=== PATIENT | male | born 1955 | race Caucasian/White ===

== ENCOUNTER 2018-05-23 13:23 | Inpatient (IN) | payer MEDICAID ==
[~2018-05-23] VITALS: Ht 180.3 cm; Wt 75.3 kg
[2018-05-23 13:23] VITALS: BP_SYST 168
[2018-05-23] MEDS ORDERED: NACL 0.9% 1,000 ML IV ONE (14:00)
[2018-05-23 14:14] LABS: BASOPHILS % (AUTO) 0.4 % (0.0-2.0); EOSINOPHILS % (AUTO) 0.1 % (0.0-4.0); HEMATOCRIT 43.8 % (36-54); HEMOGLOBIN 14.1 g/dL (14.0-18.0); LYMPHOCYTES # (AUTO) 0.8 K/uL (1.0-5.5); LYMPHOCYTES % (AUTO) 8.5 % (20.5-51.5); MEAN CORPUSCULAR HEMOGLOBIN 30 pg (27-31); MEAN CORPUSCULAR HGB CONC 32 % (32-36); MEAN CORPUSCULAR VOLUME 94 fL (79.0-98.0); MONOCYTES # (AUTO) 0.4 K/uL (0.0-1.0); NEUTROPHILS # (AUTO) 8.1 K/uL (1.8-7.7); PLATELET COUNT (AUTO) 187 K/uL (130-430); RED BLOOD CELL COUNT(AUTO) 4.65 MIL/uL (4.2-6.2); RED CELL DISTRIBUTION WIDTH 14.1 % (9.0-15.0); WHITE BLOOD COUNT (AUTO) 9.3 K/uL (4.8-10.8)
[2018-05-23] MEDS ORDERED: cloNIDine HCL 0.1 MG TABLET PO ONE (14:15)
[2018-05-23 14:27] LABS: CALCIUM 9.5 mg/dL (8.4-11.0); CREATININE 1.55 mg/dL (0.55-1.30); POTASSIUM 3.7 mmol/L (3.5-5.1)
[2018-05-23 14:30] LABS: PROTHROMBIN TIME 10.3 SECS (9.5-12.5)
[2018-05-23 14:32] LABS: TOTAL BILIRUBIN 0.6 mg/dL (0.0-1.0)
[2018-05-23 15:00] LABS: BILIRUBIN,URINE NEGATIVE (NEGATIVE); BLOOD, URINE TRACE (NEGATIVE); CLARITY/URINE CLEAR (CLEAR); COLOR,URINE YELLOW (YELLOW); GLUCOSE,URINE NEGATIVE (NEGATIVE); KETONES,URINE NEGATIVE (NEGATIVE); LEUKOCYTE ESTERASE ,URINE NEGATIVE (NEGATIVE); NITRITE, URINE NEGATIVE (NEGATIVE); PH,URINE 5.5 (5.0-8.0); PROTEIN URINE TRACE (NEGATIVE); UROBILINOGEN,URINE 0.2 (0.2-1.0)
[2018-05-23 15:10] LABS: BACTERIA,URINE RARE /HPF (None Seen); MUCUS,URINE None Seen /LPF (None Seen); RBC,URINE 0-3 /HPF (0-3); WBC,URINE 0-3 /HPF (0-3)
[2018-05-23] MEDS ORDERED: fentaNYL CITRATE/PF 100 MCG/2 ML AMP IVP ONE ×2 (15:30→17:15)
[2018-05-23] MEDS ORDERED: METO25TA3 PO (16:46)
[2018-05-23] MEDS ORDERED: AMLO2.5T2 PO (16:46)
[2018-05-23] MEDS ORDERED: ASPI-859 PO (16:46)
[2018-05-23] MEDS ORDERED: CLOP300T2 PO (16:46)
[2018-05-23] MEDS ORDERED: CHOL100035 PO (16:46)
[2018-05-23] MEDS ORDERED: LIP40 PO (16:46)
[2018-05-23] MEDS ORDERED: LOSA50TA3 PO (16:46)
[2018-05-23 18:22] VITALS: BP_SYST 144
[2018-05-23 19:25] VITALS: BP_SYST 132
[2018-05-23] MEDS ORDERED: CLINDAMYCIN 600 mg/50mL D5W 100 ML IV ONE (20:16)
[2018-05-23] MEDS: KCL 20 mEq in D5NS 1000 mL 1,000 ML IV SCH (20:23)
[2018-05-23] MEDS: CLINDAMYCIN 600 mg/50mL D5W 50 ML IV SCH (20:24)
[2018-05-23] MEDS: METOPROLOL SUCCINATE 25 MG TAB.SR.24H (TOPROL XL) PO SCH (20:25)
[2018-05-23] MEDS: ATORVASTATIN 20 MG TABLET PO SCH (20:26)
[2018-05-23] MEDS: KETOROLAC TROMETHAMINE 15 MG VIAL IVP PRN (20:32)
[2018-05-23 23:50] VITALS: BP_SYST 128
[2018-05-24] MEDS: CLINDAMYCIN 600 mg/50mL D5W 50 ML IV SCH ×4 (02:28→21:05)
[2018-05-24] MEDS: KETOROLAC TROMETHAMINE 15 MG VIAL IVP PRN ×3 (03:29→21:09)
[2018-05-24 06:50] LABS: BASOPHILS % (AUTO) 0.5 % (0.0-2.0); EOSINOPHILS # (AUTO) 0.1 K/uL (0.0-0.4); EOSINOPHILS % (AUTO) 0.9 % (0.0-4.0); HEMATOCRIT 36.9 % (36-54); HEMOGLOBIN 12.4 g/dL (14.0-18.0); LYMPHOCYTES # (AUTO) 1.1 K/uL (1.0-5.5); MEAN CORPUSCULAR HEMOGLOBIN 32 pg (27-31); MEAN CORPUSCULAR HGB CONC 34 % (32-36); MEAN CORPUSCULAR VOLUME 94 fL (79.0-98.0); MONOCYTES # (AUTO) 0.7 K/uL (0.0-1.0); MONOCYTES % (AUTO) 11.3 % (1.7-9.3); NEUTROPHILS # (AUTO) 4.5 K/uL (1.8-7.7); NEUTROPHILS % (AUTO) 70.3 % (40.0-70.0); PLATELET COUNT (AUTO) 151 K/uL (130-430); RED BLOOD CELL COUNT(AUTO) 3.91 MIL/uL (4.2-6.2); WHITE BLOOD COUNT (AUTO) 6.4 K/uL (4.8-10.8)
[2018-05-24 07:09] LABS: CALCIUM 8.4 mg/dL (8.4-11.0); CREATININE 1.53 mg/dL (0.55-1.30); POTASSIUM 4.2 mmol/L (3.5-5.1); URIC ACID 5.2 mg/dL (2.4-7.0)
[2018-05-24 08:00] VITALS: BP_SYST 150
[2018-05-24] MEDS: KCL 20 mEq in D5NS 1000 mL 1,000 ML IV SCH (09:08)
[2018-05-24] MEDS: CLOPIDOGREL BISULFATE 75 MG TABLET PO SCH (09:10)
[2018-05-24] MEDS: amLODIPine BESYLATE 5 MG TABLET PO SCH (09:10)
[2018-05-24] MEDS: ENOXAPARIN SODIUM 30 MG/0.3 ML SYRINGE SUBCUT SCH (09:14)
[2018-05-24 11:08] LABS: ERYTHROCYTE SEDIMENTATION RATE 8 MM/HR (0-15)
[2018-05-24 12:00] VITALS: BP_SYST 118
[2018-05-24 16:02] VITALS: BP_SYST 105
[2018-05-24] MEDS: VANCOMYCIN HCL 750 MG in NS 250 ML IV SCH (17:41)
[2018-05-24 19:15] VITALS: BP_SYST 142
[2018-05-24] MEDS: METOPROLOL SUCCINATE 25 MG TAB.SR.24H (TOPROL XL) PO SCH (21:05)
[2018-05-24] MEDS: ATORVASTATIN 20 MG TABLET PO SCH (21:06)
[2018-05-25 00:54] VITALS: BP_SYST 131
[2018-05-25] MEDS: CLINDAMYCIN 600 mg/50mL D5W 50 ML IV SCH ×4 (01:32→20:50)
[2018-05-25] MEDS: VANCOMYCIN HCL 750 MG in NS 250 ML IV SCH ×2 (05:27→18:04)
[2018-05-25] MEDS: KETOROLAC TROMETHAMINE 15 MG VIAL IVP PRN ×3 (05:28→18:05)
[2018-05-25] MEDS: KCL 20 mEq in D5NS 1000 mL 1,000 ML IV SCH ×2 (05:29→11:30)
[2018-05-25 08:02] VITALS: BP_SYST 148
[2018-05-25] MEDS: CLOPIDOGREL BISULFATE 75 MG TABLET PO SCH (08:26)
[2018-05-25] MEDS: ENOXAPARIN SODIUM 30 MG/0.3 ML SYRINGE SUBCUT SCH (08:27)
[2018-05-25] MEDS: amLODIPine BESYLATE 5 MG TABLET PO SCH (08:27)
[2018-05-25 12:30] VITALS: BP_SYST 128
[2018-05-25 16:29] VITALS: BP_SYST 121
[2018-05-25] MEDS ORDERED: MILK OF MAGNESIA 30 ML UDC PO ONE (18:45)
[2018-05-25] MEDS ORDERED: MILK OF MAGNESIA 30 ML UDC PO PRN (18:45)
[2018-05-25 19:00] VITALS: BP_SYST 128
[2018-05-25 20:00] VITALS: BP_SYST 128
[2018-05-25] MEDS: ATORVASTATIN 20 MG TABLET PO SCH (20:50)
[2018-05-25] MEDS: METOPROLOL SUCCINATE 25 MG TAB.SR.24H (TOPROL XL) PO SCH (20:52)
[2018-05-25] MEDS ORDERED: SENNOSIDES 8.6 MG TABLET PO SCH (21:00)
[2018-05-26 00:01] VITALS: BP_SYST 135
[2018-05-26] MEDS: KCL 20 mEq in D5NS 1000 mL 1,000 ML IV SCH (01:13)
[2018-05-26] MEDS: CLINDAMYCIN 600 mg/50mL D5W 50 ML IV SCH ×3 (01:15→14:14)
[2018-05-26] MEDS: VANCOMYCIN HCL 750 MG in NS 250 ML IV SCH (05:17)
[2018-05-26 07:50] VITALS: BP_SYST 140
[2018-05-26] MEDS: KETOROLAC TROMETHAMINE 15 MG VIAL IVP PRN (08:17)
[2018-05-26] MEDS: CLOPIDOGREL BISULFATE 75 MG TABLET PO SCH (08:18)
[2018-05-26] MEDS: amLODIPine BESYLATE 5 MG TABLET PO SCH (08:18)
[2018-05-26] MEDS: ENOXAPARIN SODIUM 30 MG/0.3 ML SYRINGE SUBCUT SCH (08:21)
[2018-05-26 11:24] VITALS: BP_SYST 133
[2018-05-26 12:51] VITALS: BP_SYST 133
[2018-05-26] MEDS ORDERED: DOXY100C PO (13:05)
== END 2018-05-26 14:30 | disposition home health service (06) | DRG 344 ==
LOC: SED 13:23 → SMU 17:51
PROVIDERS: ADMIT Family Medicine; ATTEND Family Medicine
DX: M86.9 Osteomyelitis, unspecified (principal); N17.9 Acute kidney failure, unspecified; Q61.3 Polycystic kidney, unspecified; L03.115 Cellulitis of right lower limb; I73.9 Peripheral vascular disease, unspecified; E86.0 Dehydration; I25.10 Atherosclerotic heart disease of native coronary artery without angina pectoris; E78.5 Hyperlipidemia, unspecified; I12.9 Hypertensive chronic kidney disease with stage 1 through stage 4 chronic kidney disease, or unspecified chronic kidney disease; N18.2 Chronic kidney disease, stage 2 (mild); M60.9 Myositis, unspecified; M19.90 Unspecified osteoarthritis, unspecified site; M25.471 Effusion, right ankle; M10.9 Gout, unspecified; M11.271 Other chondrocalcinosis, right ankle and foot; K59.00 Constipation, unspecified; Z79.01 Long term (current) use of anticoagulants; Z95.5 Presence of coronary angioplasty implant and graft; I25.2 Old myocardial infarction; Z79.899 Other long term (current) drug therapy; Z91.041 Radiographic dye allergy status
CPT/HCPCS: 36415; 71045; 73721; 80048; 80053; 81000-TC; 83605; 83880; 84484; 84550-TC; 85025; 85610-TC; 85651-TC; 85730-TC; 87040-TC; 87086; 93005; 93922; 93971; 96361; 96374; 96376; 99285; J1650; J1885; J3010; J3370; J3490; J7050

== ENCOUNTER 2018-07-13 19:05 | Emergency (ER) | payer MEDICAID ==
[~2018-07-13] VITALS: Ht 180.3 cm; Wt 74.4 kg
[2018-07-13 19:05] VITALS: BP_SYST 186
[~2018-07-13 19:05] MED LIST: AMLO2.5T2 PO; ASPI-859 PO; CHOL100035 PO; CLOP300T2 PO; DOXY100C PO; LIP40 PO; LOSA50TA3 PO; METO25TA3 PO
[2018-07-13] MEDS ORDERED: METOPROLOL TARTRATE 5 MG/5 ML VIAL IVP ONE (19:30)
[2018-07-13 20:03] LABS: BASOPHILS % (AUTO) 0.7 % (0.0-2.0); EOSINOPHILS # (AUTO) 0.1 K/uL (0.0-0.4); EOSINOPHILS % (AUTO) 2.8 % (0.0-4.0); HEMATOCRIT 41.6 % (36-54); HEMOGLOBIN 13.8 g/dL (14.0-18.0); LYMPHOCYTES # (AUTO) 1.3 K/uL (1.0-5.5); MEAN CORPUSCULAR HEMOGLOBIN 31 pg (27-31); MEAN CORPUSCULAR HGB CONC 33 % (32-36); MEAN CORPUSCULAR VOLUME 93 fL (79.0-98.0); MONOCYTES # (AUTO) 0.3 K/uL (0.0-1.0); MONOCYTES % (AUTO) 7.2 % (1.7-9.3); NEUTROPHILS # (AUTO) 2.8 K/uL (1.8-7.7); NEUTROPHILS % (AUTO) 61.3 % (40.0-70.0); PLATELET COUNT (AUTO) 199 K/uL (130-430); RED BLOOD CELL COUNT(AUTO) 4.49 MIL/uL (4.2-6.2); WHITE BLOOD COUNT (AUTO) 4.5 K/uL (4.8-10.8)
[2018-07-13 20:24] LABS: PROTHROMBIN TIME 10.1 SECS (9.5-12.5)
[2018-07-13 20:35] LABS: CALCIUM 8.9 mg/dL (8.4-11.0); CREATININE 1.33 mg/dL (0.55-1.30); POTASSIUM 4.2 mmol/L (3.5-5.1)
[2018-07-13 20:40] LABS: ALBUMIN 3.6 g/dL (3.4-4.8); TOTAL BILIRUBIN 0.4 mg/dL (0.0-1.0)
[2018-07-13 20:49] LABS: BILIRUBIN,URINE NEGATIVE (NEGATIVE); BLOOD, URINE NEGATIVE (NEGATIVE); CLARITY/URINE CLEAR (CLEAR); COLOR,URINE YELLOW (YELLOW); GLUCOSE,URINE NEGATIVE (NEGATIVE); KETONES,URINE NEGATIVE (NEGATIVE); LEUKOCYTE ESTERASE ,URINE NEGATIVE (NEGATIVE); NITRITE, URINE NEGATIVE (NEGATIVE); PROTEIN URINE NEGATIVE (NEGATIVE); UROBILINOGEN,URINE 0.2 (0.2-1.0)
[2018-07-13] MEDS ORDERED: MORPHINE 2 MG/ML INJ. SYRINGE IVP ONE (23:00)
[2018-07-13] MEDS ORDERED: MORPHINE 4 MG/ML INJ. SYRINGE ONE (23:27)
[2018-07-14 02:47] VITALS: BP_SYST 143
== END 2018-07-13 23:47 | disposition home or self-care (01) ==
LOC: SED 19:05
DX: M25.561 Pain in right knee (principal); I25.2 Old myocardial infarction; I10 Essential (primary) hypertension; E78.5 Hyperlipidemia, unspecified; Z95.1 Presence of aortocoronary bypass graft; Z79.899 Other long term (current) drug therapy; Z91.041 Radiographic dye allergy status
CPT/HCPCS: 36415; 73564; 80053; 81003; 83605; 84484; 85025; 85610; 85730; 86140; 87040; 93005; 96374; 96375; 99284; J2270; J3490

== ENCOUNTER 2018-11-21 15:15 | Inpatient (IN) | payer MEDICAID ==
[~2018-11-21] VITALS: Ht 180.3 cm; Wt 76.7 kg
--- NOTE | 2018-11-21 00:50 | NUR ---
Pain mgmt Pt alert, awake, c/o burning pain 6/10 more on L. foot than right. Medicated with Ultram 50mg PO. Call light/items within reach. To monitor. Addendum: 11/22/18 at 0117 by Ana Baldwin RN Occurred 11/21/18 5476.
[2018-11-21 15:15] VITALS: BP_SYST 147
--- NOTE | 2018-11-21 15:15 | NUR ---
BROUGHT BACK TO BED #5 VIA WHEELCHAIR AND PLACED IN BED, TRIAGED. REPORT GIVEN TO ANA MARÍA
--- NOTE | 2018-11-21 15:50 | NUR ---
ER Dr. Vaughan at bedside examining patient.
--- NOTE | 2018-11-21 15:55 | NUR ---
Patient presented to ER with C/o pain bilat feet. Patient A&Ox4, a febrile, skin pink, respirations equal bilat, pain 9/10, denies N/V/D. patient arrived sitting in walker, states he is unable to walk d/t bilat feet swelling. Patient states he was at follow up appont at Dr. Pinto office, when Dr. Pnito suggested pt come to ER for evaluation. Patient states bilat foot pain, swelling, throbbing x1week. Patient was seen at [facility] ER 11/17/18 for gout. Patient states pain & swelling has not decreased prompting visit to Dr. Pinto.
[2018-11-21] MEDS ORDERED: ACETAMINOPHEN 325 MG TABLET PO ONE (16:00)
--- NOTE | 2018-11-21 16:05 | NUR ---
ASSISTED BELA GOTTI. TYLENOL ADMINISTERED FOR BILATERAL FOOT PAIN = 9/. TOLERATED WELL. PLEASE SEE EMAR FOR DETAILS.
[2018-11-21 16:23] LABS: BASOPHILS % (AUTO) 0.2 % (0.0-2.0); EOSINOPHILS % (AUTO) 0.2 % (0.0-4.0); HEMATOCRIT 44.1 % (36-54); HEMOGLOBIN 14.6 g/dL (14.0-18.0); LYMPHOCYTES # (AUTO) 0.6 K/uL (1.0-5.5); LYMPHOCYTES % (AUTO) 7.6 % (20.5-51.5); MEAN CORPUSCULAR HEMOGLOBIN 31 pg (27-31); MEAN CORPUSCULAR HGB CONC 33 % (32-36); MEAN CORPUSCULAR VOLUME 94 fL (79.0-98.0); MONOCYTES # (AUTO) 0.7 K/uL (0.0-1.0); MONOCYTES % (AUTO) 8.5 % (1.7-9.3); NEUTROPHILS # (AUTO) 6.7 K/uL (1.8-7.7); NEUTROPHILS % (AUTO) 83.5 % (40.0-70.0); PLATELET COUNT (AUTO) 193 K/uL (130-430); RED BLOOD CELL COUNT(AUTO) 4.68 MIL/uL (4.2-6.2); RED CELL DISTRIBUTION WIDTH 14.5 % (9.0-15.0)
[2018-11-21 16:37] LABS: CALCIUM 9.4 mg/dL (8.4-11.0); CREATININE 1.71 mg/dL (0.55-1.30); POTASSIUM 4.4 mmol/L (3.5-5.1)
[2018-11-21 16:42] LABS: ALBUMIN 3.3 g/dL (3.4-4.8); TOTAL BILIRUBIN 0.8 mg/dL (0.0-1.0)
--- NOTE | 2018-11-21 17:00 | NUR ---
avionics technician at bedside
--- NOTE | 2018-11-21 18:33 | NUR ---
Patient states he forgot Medication list, will bring list in.
[2018-11-21] MEDS ORDERED: PIPERACILLIN/TAZO 3.375 GM in NS 50 ML IV ONE (18:45)
[2018-11-21] MEDS ORDERED: VANCOMYCIN HCL 1,000 MG in NS 250 ML IV ONE (18:45)
[2018-11-21] MEDS ORDERED: PIPERACILLIN/TAZOBACTAM 3.375 GM/VIAL (ZOSYN) IV ONE (18:57)
--- NOTE | 2018-11-21 19:10 | NUR ---
Report given to Mandy CRAMER
--- NOTE | 2018-11-21 19:20 | NUR ---
1919 - Report given at bedside to med/surg admit nurse. Pt to be transported to floor by ANDREE Robles w/ pt in [facility]. Stable condition.
[2018-11-21] MEDS ORDERED: VANCOMYCIN HCL 1000 MG/VIAL IV ONE ×2 (19:25→19:40)
--- NOTE | 2018-11-21 19:44 | NUR ---
ADMISSION NOTE Received patient from ER via gurney. Patient admitted with diagnosis of Cellulitis to Bilateral Lower Extremities. Patient is awake, alert, oriented X 4. Patient oriented to hospital room, call light, toileting, pain management and safety-teach back done. Patient informed that BELA Perez will be primary nurse and that their room number is 134B. Personal belongings checked and Belongings List documented. Call light within reach.
[2018-11-21 19:53] VITALS: BP_SYST 144
--- NOTE | 2018-11-21 20:44 | NUR ---
Initial RN notes Received pt AAOx4, no s/s distress noted. IV antibiotic Vanco infusing L. AC 20G good blood return. Santiago lower extremities edematous L foot > than R. foot. Left foot more tender, swollen and red than right. Allergy band on. Instructed pt to call for assistance, pt verbalized understanding. Call light/urinal within reach. Will continue to monitor.
--- NOTE | 2018-11-21 21:30 | NUR ---
Urine sample collected and sent to lab.
[2018-11-21 22:39] LABS: BILIRUBIN,URINE NEGATIVE (NEGATIVE); CLARITY/URINE CLEAR (CLEAR); COLOR,URINE YELLOW (YELLOW); GLUCOSE,URINE NEGATIVE (NEGATIVE); KETONES,URINE NEGATIVE (NEGATIVE); LEUKOCYTE ESTERASE ,URINE NEGATIVE (NEGATIVE); NITRITE, URINE NEGATIVE (NEGATIVE); PH,URINE 5.5 (5.0-8.0); PROTEIN URINE TRACE (NEGATIVE); UROBILINOGEN,URINE 0.2 (0.2-1.0)
[2018-11-21 22:41] LABS: BLOOD, URINE TRACE (NEGATIVE)
[2018-11-21 22:44] LABS: BACTERIA,URINE FEW /HPF (None Seen); WBC,URINE 0-3 /HPF (0-3)
--- NOTE | 2018-11-21 22:56 | NUR ---
Dr. Story here to see pt.
--- NOTE | 2018-11-21 23:15 | NUR ---
CONSULTATION PAGED/CALLED Reason for Consultation: RENAL DISEASE Person Who was Notified: ANA MARÍA Consulting Physician: BRANDON Yardage Control Clerk Specialty: Ordering Physician: CHUNG
--- NOTE | 2018-11-21 23:17 | NUR ---
CONSULTATION PAGED/CALLED Reason for Consultation:CELLULITIS TO LOWER EXTRIMITIES Person Who was Notified: ANA MARÍA Consulting Physician: CORAZON Appraisal Coordinator Specialty: ID Ordering Physician: CHUNG
[2018-11-21] MEDS: CARVEDILOL 12.5 MG TABLET (COREG) PO SCH (23:48)
[2018-11-21] MEDS: traMADol HCL HCL 50 MG TABLET (ULTRAM) PO PRN (23:49)
--- NOTE | 2018-11-21 23:49 | NUR ---
Pain mgmt Pt alert, awake, c/o burning pain 6/10 more on the left foot than the right. Pt medicated with Ultram 50mg PO as needed. Santiago legs maintained elevated on pillow. Call light within reach. To monitor.
[2018-11-22] MEDS ORDERED: PIPERACILLIN/TAZOBACTAM 2.25 GM VIAL IV ONE (00:07)
[2018-11-22] MEDS: PIPERACILLIN/TAZO 2.25G/DEX-IS 50 ML IV SCH ×2 (00:13→06:05)
[2018-11-22 00:31] VITALS: BP_SYST 139
--- NOTE | 2018-11-22 00:43 | NUR ---
Rounds Pt asleep, easily arousable. IV abx finished L. AC 20G clear, patent. Call light within reach. Bed low, locked, alarm on. To monitor.
--- NOTE | 2018-11-22 04:43 | NUR ---
Rounds Pt asleep, no s/s distress or discomfort noted. Call light within easy reach. To monitor.
--- NOTE | 2018-11-22 06:05 | NUR ---
Closing notes Pt alert, awake. No s/s distress or discomfort at this time. IV antibiotic infusing L. AC 20 as ordered, no s/s infiltration noted. Santiago legs maintained floated on pillow. Less swelling/erythema noted on santiago feet. Call light within reach. Safety measure in place. To endorse to AM nurse.
[2018-11-22 06:21] LABS: CALCIUM 8.9 mg/dL (8.4-11.0); CREATININE 1.52 mg/dL (0.55-1.30); POTASSIUM 4.6 mmol/L (3.5-5.1)
[2018-11-22 06:25] LABS: BASOPHILS % (AUTO) 0.7 % (0.0-2.0); EOSINOPHILS # (AUTO) 0.1 K/uL (0.0-0.4); EOSINOPHILS % (AUTO) 0.9 % (0.0-4.0); HEMATOCRIT 38.9 % (36-54); HEMOGLOBIN 12.8 g/dL (14.0-18.0); LYMPHOCYTES # (AUTO) 1.1 K/uL (1.0-5.5); LYMPHOCYTES % (AUTO) 19.3 % (20.5-51.5); MEAN CORPUSCULAR HEMOGLOBIN 31 pg (27-31); MEAN CORPUSCULAR HGB CONC 33 % (32-36); MEAN CORPUSCULAR VOLUME 94 fL (79.0-98.0); MONOCYTES # (AUTO) 0.6 K/uL (0.0-1.0); MONOCYTES % (AUTO) 11.3 % (1.7-9.3); NEUTROPHILS # (AUTO) 3.7 K/uL (1.8-7.7); NEUTROPHILS % (AUTO) 67.8 % (40.0-70.0); PLATELET COUNT (AUTO) 169 K/uL (130-430); RED BLOOD CELL COUNT(AUTO) 4.15 MIL/uL (4.2-6.2); RED CELL DISTRIBUTION WIDTH 14.6 % (9.0-15.0); WHITE BLOOD COUNT (AUTO) 5.5 K/uL (4.8-10.8)
[2018-11-22 06:38] LABS: C-REACTIVE PROTEIN QUANT 19.5 mg/dL (0-0.5)
[2018-11-22 08:00] VITALS: BP_SYST 138
--- NOTE | 2018-11-22 08:00 | NUR ---
initial notes rec patient awake alert with hob elevated. ivl intact. no infiltration noted. resp easy and unlabored. no sob noted. bed to the lowest position and side rails up and locked. call light within reached and k knows when to call for assistance.
[2018-11-22] MEDS: CARVEDILOL 12.5 MG TABLET (COREG) PO SCH ×2 (09:07→21:00)
[2018-11-22] MEDS: CLOPIDOGREL BISULFATE 75 MG TABLET PO SCH (09:07)
--- NOTE | 2018-11-22 10:00 | NUR ---
rounds due meds given as ordered. denies pain. both legs elevated on a pillow.
--- NOTE | 2018-11-22 10:45 | NUR ---
Nutrition Update Wyatt Scale 17 noted. Pt admitted for cellulitis to [facility]. Diet: regular, renal BMI: 23.6 kg/m2 RD to follow per nutrition care standards.
[2018-11-22 12:42] VITALS: BP_SYST 109
--- NOTE | 2018-11-22 13:00 | NUR ---
rounds was seen by dr bolton and with orders. no acute distress noted.
--- NOTE | 2018-11-22 15:00 | NUR ---
rounds seen by dr aburto and with orders. call light within reached.
--- NOTE | 2018-11-22 15:51 | NUR ---
CONSULT REASON FOR CONSULT: LEFT ANKLE INFECTION PERSON I SPOKE WITH: TERELL CONSULTING PHYSICIAN: DR. PRESCOTT SAND MIXER OPERATOR PHONE NUMBER: [phone] ORDERING PHYSICIAN: DR. WILKES
[2018-11-22 16:55] VITALS: BP_SYST 112
[2018-11-22 20:00] VITALS: BP_SYST 128
[2018-11-22] MEDS ORDERED: VANCOMYCIN HCL 1,250 MG in NS 250 ML IV SCH (20:00)
--- NOTE | 2018-11-22 20:00 | NUR ---
Opening notes Pt AAOx3, VSS, afebrile. No acute distress or discomfort noted. IV saline lock L. AC clear, patent. Santiago legs elevated on pillow. Less edema/redness noted on L. foot, tender to touch and movement. Call lgiht within reach. To monitor.
--- NOTE | 2018-11-22 21:30 | NUR ---
Med pass Pt awake, Coreg held due to pt's HR 57. IV antibiotic administered as ordered L AC clear and patent. Call light/items within reach. To monitor.
[2018-11-22] MEDS: ATORVASTATIN 20 MG TABLET PO SCH (21:35)
[2018-11-22] MEDS: COLCHICINE 0.6 MG TABLET PO SCH (21:35)
[2018-11-22] MEDS: ceFAZolin SODIUM 1 GM in D5W 50 ML IV SCH (21:35)
[2018-11-22 23:44] VITALS: BP_SYST 125
--- NOTE | 2018-11-23 00:05 | NUR ---
Rounds Pt asleep, no s/s distress noted. Call light within reach. To monitor.
--- NOTE | 2018-11-23 02:45 | NUR ---
Rounds Pt asleep, respiration even and unlabored. No s/s distress. Call light/items within reach. To monitor.
--- NOTE | 2018-11-23 04:45 | NUR ---
Rounds Pt awake, no c/o discomfort. Call light within reach. Urinal emptied. To monitor.
--- NOTE | 2018-11-23 06:46 | NUR ---
Closing notes Pt awake, no c/o discomfort. IV saline lock L AC clear, patent. Santiago legs floated on pillow. Call light within reach. Safety measures in place. To endorse to AM nurse.
[2018-11-23 07:04] LABS: BASOPHILS % (AUTO) 0.7 % (0.0-2.0); EOSINOPHILS # (AUTO) 0.1 K/uL (0.0-0.4); EOSINOPHILS % (AUTO) 1.7 % (0.0-4.0); HEMATOCRIT 38.7 % (36-54); HEMOGLOBIN 12.8 g/dL (14.0-18.0); LYMPHOCYTES # (AUTO) 0.9 K/uL (1.0-5.5); LYMPHOCYTES % (AUTO) 14.4 % (20.5-51.5); MEAN CORPUSCULAR HEMOGLOBIN 31 pg (27-31); MEAN CORPUSCULAR HGB CONC 33 % (32-36); MEAN CORPUSCULAR VOLUME 94 fL (79.0-98.0); MONOCYTES # (AUTO) 0.7 K/uL (0.0-1.0); MONOCYTES % (AUTO) 10.7 % (1.7-9.3); NEUTROPHILS # (AUTO) 4.6 K/uL (1.8-7.7); NEUTROPHILS % (AUTO) 72.5 % (40.0-70.0); PLATELET COUNT (AUTO) 184 K/uL (130-430); RED BLOOD CELL COUNT(AUTO) 4.14 MIL/uL (4.2-6.2); RED CELL DISTRIBUTION WIDTH 14.5 % (9.0-15.0); WHITE BLOOD COUNT (AUTO) 6.4 K/uL (4.8-10.8)
[2018-11-23 07:18] LABS: ALBUMIN 2.4 g/dL (3.4-4.8); CALCIUM 8.9 mg/dL (8.4-11.0); CREATININE 1.38 mg/dL (0.55-1.30); POTASSIUM 4.5 mmol/L (3.5-5.1); TOTAL BILIRUBIN 0.7 mg/dL (0.0-1.0)
[2018-11-23 08:00] VITALS: BP_SYST 116
--- NOTE | 2018-11-23 08:00 | NUR ---
initial notes rec patient awake alert with ivl intact on the l arm . no infiltration noted. denies pain. both legs elevated on a pillow. resp easy and unlabored.no sob noted. call light within reached and knows when to call for assistance. bed to the lowest position and side rails up and locked.
--- NOTE | 2018-11-23 09:10 | NUR ---
FOLLOW UP CONSULT: spoke with Alisha from office [phone] Re:Consult left ankle infection.
[2018-11-23] MEDS: CLOPIDOGREL BISULFATE 75 MG TABLET PO SCH (09:28)
[2018-11-23] MEDS: COLCHICINE 0.6 MG TABLET PO SCH (09:28)
[2018-11-23] MEDS: ceFAZolin SODIUM 1 GM in D5W 50 ML IV SCH ×2 (09:28→23:59)
[2018-11-23] MEDS: CARVEDILOL 12.5 MG TABLET (COREG) PO SCH (09:28)
[2018-11-23] MEDS: traMADol HCL HCL 50 MG TABLET (ULTRAM) PO PRN (11:04)
--- NOTE | 2018-11-23 12:48 | NUR ---
[address] ZAPATA RE: CONSULT Addendum: 11/23/18 at 1249 by Amparo Vaughan CNA SPOKE WITH TERELL FROM OFFICE .
[2018-11-23 12:57] VITALS: BP_SYST 121
--- NOTE | 2018-11-23 14:00 | NUR ---
DC Planning : per request cm s/w pt and his spouse at bedside re dcp to home with HH. Spouse requested [facility] for their return services. Discussing possible for snf placement which spouse indicated that she would prefer for the pt. to go. This due to her weakness and unable to help pt to get up or ambulate. She requests pt going to a snf in [place] where is on [address] [facility] . The pt will need FWW and WC with pending PT eval -- spouse aware. Weekend cm please notify [facility] CM with pt's request upon discharge.
--- NOTE | 2018-11-23 16:00 | NUR ---
rounds paged dr nelson cell phone and left message re patient and still waiting to call back. still concerned re the aspiration and repeatedly tell her waiting for hr nelson to call back.
--- NOTE | 2018-11-23 16:23 | NUR ---
Social Service Note: PRODUCTION PATTERN MAKER met with pt and pt's at bedside; pt has asked for an advanced directive. PRODUCTION PATTERN MAKER provided pt's with a copy of an advanced directive. PRODUCTION PATTERN MAKER explained the different sections that need to be completed. PRODUCTION PATTERN MAKER also provided pt's with a copy of mobile notaries. Pt and pt's have no other needs at this time. PRODUCTION PATTERN MAKER will follow up as needed.
[2018-11-23 17:13] VITALS: BP_SYST 108
[2018-11-23 19:00] VITALS: BP_SYST 120
--- NOTE | 2018-11-23 19:00 | NUR ---
closing notes dr mi came and stated will discharged patient home. 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 endorsed to mary kay del toro care of the patient.
--- NOTE | 2018-11-23 20:17 | NUR ---
PAGED PAGING DR. WILKES ON PAGER [phone]
--- NOTE | 2018-11-23 22:55 | NUR ---
Dr. Story present to the unit; Talked to Dr. Story regarding concerns of patient and about discharge: that patient still with pain on both legs and unable to walk related to his cellulitis of both legs. Dr Story made aware of recommendation of Dr. Godoy who talked to Dr. Reyes about Physical Theraphy evaluation and Dr. Story agreed. Primary RN made aware.
[2018-11-23] MEDS ORDERED: ALPRAZolam 0.25 MG TABLET PO PRN (23:15)
[2018-11-23 23:37] VITALS: BP_SYST 144
[2018-11-24] MEDS: traMADol HCL HCL 50 MG TABLET (ULTRAM) PO PRN ×4 (00:02→22:24)
[2018-11-24] MEDS: CARVEDILOL 12.5 MG TABLET (COREG) PO SCH ×3 (00:02→22:01)
--- NOTE | 2018-11-24 06:45 | NUR ---
pt.was order for d/c home per :monday11/23/18. was apprised of the d/c home order per . was upset.the had assumed the pt.was to be transferred to a rehab/snf facility.2/t pt.presents lower extremity weakness is presenting difficulty ambulating. was paged i conveyed to the 's concerns.pt.was to have submitted to a drainage of lt.foot.;ortho was consulted but did not return the call post several attempts /monday.i conveyed the ;s concerns to braden/mando;rn,milind;house mover helper. was paged.i conveyed to the pt's situation/'s concerns. conferwd w/.pt.was to submit to pht/ot eval;peer the evaluation:is pt.to be d/c home w/dme or transfered to a rehab/snf acfility. return top the hospital@approximately 2300p;selma conveyed the necessity to involved in case.i conveyed to shmuel willams that the pt.presented profound anxiety. ordered xanax;0.5mg po.i administed thew xanax.pt.is ordered to submit to pht/ot eval.and a case mgx note was located w/in the pt's noted the necessity for a pht/eval for further placement needs.dtr in law telephoned the hospital.i conveyed all the updates for the pt's care.dtr in law was to convey to the pt's the updates.
[2018-11-24 08:00] VITALS: BP_SYST 129
--- NOTE | 2018-11-24 08:00 | NUR ---
Opening Note Report received from [facility] shift nurse. Patient is currently awake and resting in bed. Edema noted over BLE the left more so then the right. Areas of open or broken skin are not seen. IV is open the LAC 22g, SL. Call light is within reach and in the lowest position. Will continue to monitor.
[2018-11-24] MEDS: COLCHICINE 0.6 MG TABLET PO SCH ×3 (09:49→21:58)
[2018-11-24] MEDS: ceFAZolin SODIUM 1 GM in D5W 50 ML IV SCH ×2 (09:49→22:02)
[2018-11-24] MEDS: CLOPIDOGREL BISULFATE 75 MG TABLET PO SCH (09:49)
--- NOTE | 2018-11-24 10:15 | NUR ---
Rounds Patient is resting in bed. Call light is within reach and bed is in the lowest position.
--- NOTE | 2018-11-24 12:24 | NUR ---
MD Rounds Dr. Enciso rounded on the patient, orders received.
[2018-11-24] MEDS ORDERED: methylPREDNISolone SOD SUCC/PF 62.5 MG/ML VIAL IVP ONE (12:30)
[2018-11-24 12:58] VITALS: BP_SYST 158
--- NOTE | 2018-11-24 14:33 | NUR ---
Case mgt: Pt was not dc'd last night per order-per nurse notes, pt unable to ambulate due to pain,swelling in legs--Met w/Dr. Parr while he's rounding--discussed dc plan for snf--pt Barbara agreeable to snf-per notes, wants [facility]--I called [facility] manager of case Meche at [phone] to request snf list--there is message on her phone to call after hrs #[phone] for on-call nurse-I called after hrs ph#, but the message says "please try again" and "office is closed". I left message on Meche's ph# re: snf placement and I faxed orders, snf packet (PT eval not completed yet-no Physical therapist here today-nurse Britt is checking on when PT will come this weekend) to [facility] fax#[phone] and also to [facility] fax#[phone]--ph#[phone]. RAKAN RN
--- NOTE | 2018-11-24 14:37 | NUR ---
MD Rounds Dr. Parr examined patient at the bedside. Orders received.
--- NOTE | 2018-11-24 14:48 | NUR ---
MD Rounds Dr. Britton is examining the patient at the bedside.
--- NOTE | 2018-11-24 16:48 | NUR ---
Rounds patient is resting in bed No signs of distress noted. Call light is within reach.
[2018-11-24] MEDS: CELECOXIB 200 MG CAPSULE PO SCH (17:43)
[2018-11-24 17:48] VITALS: BP_SYST 121
--- NOTE | 2018-11-24 18:33 | NUR ---
Closing Note Patient is currently resting in bed. Dr. Britton rounded on the patient earlier today. BLE are elevated on pillows. LAC 22g is SL. PT eval is pending for today. Call light is within reach and bed is in low position. Will endorse care to the oncoming nurse.
--- NOTE | 2018-11-24 19:13 | NUR ---
OPENING NOTE Received patient awake, resting in bed w/ HOB elevated to 30 degrees, in no sign of distress and watching t.v. Saline lock IV to LAC. Bed is locked to lowest position, bed alarm on, instructed on use of call light.
--- NOTE | 2018-11-24 19:50 | NUR ---
CHANGE OF SHIFT; pt. endorsed to me by nurse Mobley. pt. awake, alert and oriented. IV lock on left antecubital. in no acute distress. safety measures observed. call light within reach.
[2018-11-24 20:30] VITALS: BP_SYST 135
[2018-11-24] MEDS: ATORVASTATIN 20 MG TABLET PO SCH ×2 (21:58)
[2018-11-24] MEDS: methylPREDNISolone SOD SUCC/PF 62.5 MG/ML VIAL IVP SCH (21:59)
--- NOTE | 2018-11-24 22:30 | NUR ---
NOTES: pt. medicated with Ultram for c/o pain on his rt. side of his body, medication unable to scan,
--- NOTE | 2018-11-24 23:15 | NUR ---
NOTES: IV site on left arm infiltrated, restarted another IV site rt. wrist area with gauge 22, infuse due IV antibiotic.
--- NOTE | 2018-11-24 23:30 | NUR ---
NOTES: pt. noted relief when checked. pt. been voiding per urinal.
[2018-11-25 01:30] VITALS: BP_SYST 113
--- NOTE | 2018-11-25 02:00 | NUR ---
NOTES: pt. checked and sleeping when made rounds.
--- NOTE | 2018-11-25 04:30 | NUR ---
NOTES: condition unchanged. pt. remain sleeping.
[2018-11-25 06:12] LABS: BASOPHILS % (AUTO) 0.1 % (0.0-2.0); HEMATOCRIT 41.5 % (36-54); HEMOGLOBIN 13.9 g/dL (14.0-18.0); LYMPHOCYTES # (AUTO) 0.4 K/uL (1.0-5.5); LYMPHOCYTES % (AUTO) 9.7 % (20.5-51.5); MEAN CORPUSCULAR HEMOGLOBIN 31 pg (27-31); MEAN CORPUSCULAR HGB CONC 34 % (32-36); MEAN CORPUSCULAR VOLUME 93 fL (79.0-98.0); NEUTROPHILS # (AUTO) 3.8 K/uL (1.8-7.7); NEUTROPHILS % (AUTO) 89.2 % (40.0-70.0); PLATELET COUNT (AUTO) 219 K/uL (130-430); RED BLOOD CELL COUNT(AUTO) 4.45 MIL/uL (4.2-6.2); RED CELL DISTRIBUTION WIDTH 13.9 % (9.0-15.0); WHITE BLOOD COUNT (AUTO) 4.3 K/uL (4.8-10.8)
[2018-11-25 06:18] LABS: CALCIUM 9.5 mg/dL (8.4-11.0); CREATININE 1.52 mg/dL (0.55-1.30); POTASSIUM 5.1 mmol/L (3.5-5.1)
[2018-11-25 06:27] LABS: ALBUMIN 2.5 g/dL (3.4-4.8); TOTAL BILIRUBIN 0.3 mg/dL (0.0-1.0)
--- NOTE | 2018-11-25 06:30 | NUR ---
CLOSING NOTES; PT. REMAIN SLEEPING, IN NO ACUTE DISTRESS. IV LOCK INTACT. FOR FURTHER ASSISTANCE.
--- NOTE | 2018-11-25 07:15 | NUR ---
ENDORSED TO NURSE CANDE ABOUT PT./ DOES NOT WANT DR. WILKES.
[2018-11-25 08:00] VITALS: BP_SYST 138
--- NOTE | 2018-11-25 08:00 | NUR ---
RN OPENING NOTE PATIENT IS RESTING ON BED, ALERT ORIENTED X4, PATIENT WAS ASSESSED, VITAL SIGNS ARE STABLE. PATIENT DENIES PAIN OR DISCOMFORT. PATIENT'S BED AT LOW POSITION AND CALL LIGHT WITHIN REACH, WILL PASS MED AT 0900
[2018-11-25] MEDS: ceFAZolin SODIUM 1 GM in D5W 50 ML IV SCH ×2 (08:59→20:44)
[2018-11-25] MEDS: CLOPIDOGREL BISULFATE 75 MG TABLET PO SCH (09:00)
[2018-11-25] MEDS: methylPREDNISolone SOD SUCC/PF 62.5 MG/ML VIAL IVP SCH ×2 (09:00→20:43)
[2018-11-25] MEDS: CELECOXIB 200 MG CAPSULE PO SCH ×2 (09:01→18:15)
[2018-11-25] MEDS: COLCHICINE 0.6 MG TABLET PO SCH ×2 (09:01→20:44)
[2018-11-25] MEDS: CARVEDILOL 12.5 MG TABLET (COREG) PO SCH ×2 (09:02→20:47)
--- NOTE | 2018-11-25 10:00 | NUR ---
RN NOTE PATIENT WAS GIVEN HIS MEDICATION, PATIENT IS HAPPY AND SAID HIS IS COMING OVER. PATIENT DENIES PAIN OR DISCOMFORT. WILL CONTINUE TO MONITOR.
--- NOTE | 2018-11-25 12:00 | NUR ---
RN NOTE PATIENT IS RESTING ON BED, PATIENT WAS SERVED HIS LUNCH, PATIENT'S BY BED SIDE, BOTH WERE EDUCATED ABOUT FALL PREVENTION. ANEMIA. AND GOUT. SIGNS AND SYMPTOMS ORTHO DOCTOR ALREADY SEEN THE PATIENT, WILL CONTINUE TO MONITOR.
[2018-11-25 12:02] VITALS: BP_SYST 118
--- NOTE | 2018-11-25 14:00 | NUR ---
RN NOTE PATIENT IS RESTING IN BED, BY THE BEDSIDE, NO ISSUE,
--- NOTE | 2018-11-25 16:00 | NUR ---
RN NOTE PATIENT IS RESTING IN BED, DENIES PAIN OR DISCOMFORT, PATIENT IS WATCHING TV, WILL CONTINUE TO MONITOR.
[2018-11-25 16:02] VITALS: BP_SYST 129
--- NOTE | 2018-11-25 18:31 | NUR ---
RN CLOSING NOTE PATIENT IS RESTING IN BED, PATIENT WAS GIVEN HER BED CORRALES WHERE SHE VOIDED CLEAR URINE, PATIENT WAS THEN SERVED HER DINNER, PATIENT DENIES PAIN OR DISCOMFORT. WILL CONTINUE TO MONITOR AND WILL ENDORSE TO NEXT SHIFT.
--- NOTE | 2018-11-25 19:25 | NUR ---
CHANGE OF SHIFT; pt. awake, alert and oriented, on high fowlers position, no complaints at this time. instructed pt. to call for help and use of call light and verbalized understanding.
[2018-11-25 20:15] VITALS: BP_SYST 121
[2018-11-25] MEDS: ATORVASTATIN 20 MG TABLET PO SCH (20:45)
--- NOTE | 2018-11-25 20:45 | NUR ---
NOTES; due meds given, pt. repositioned self for comfort, maintain bed rest tonight, urinal at bedside. IV lock on rt. wrist are, due IV antibiotic to infuse. still noted with sided chest discomfort, offered pain med and said maybe later. denies short of breath, on room air, moves all extremities .
--- NOTE | 2018-11-25 22:30 | NUR ---
pt. still awake, watching tv, given some snack . call light within reach.
--- NOTE | 2018-11-26 | NUR ---
NOTES: pt. sleeping when checked. voided per urinal.
[2018-11-26 00:42] VITALS: BP_SYST 137
--- NOTE | 2018-11-26 03:34 | NUR ---
NOTES: condition unchanged, continue to monitor.
--- NOTE | 2018-11-26 06:00 | NUR ---
NOTES: pt. awakened, no complaints. needs attended. voided per urinal.
--- NOTE | 2018-11-26 06:30 | NUR ---
CLOSING NOTES; pt. watching tv, IV lock patent. in no distress. for further care and assistance. call light within reach. will endorse to day shift.
[2018-11-26 06:51] LABS: HEMATOCRIT 39.4 % (36-54); HEMOGLOBIN 13.1 g/dL (14.0-18.0); LYMPHOCYTES # (AUTO) 0.5 K/uL (1.0-5.5); LYMPHOCYTES % (AUTO) 4.4 % (20.5-51.5); MEAN CORPUSCULAR HEMOGLOBIN 31 pg (27-31); MEAN CORPUSCULAR HGB CONC 33 % (32-36); MEAN CORPUSCULAR VOLUME 93 fL (79.0-98.0); MONOCYTES # (AUTO) 0.3 K/uL (0.0-1.0); MONOCYTES % (AUTO) 3.2 % (1.7-9.3); NEUTROPHILS # (AUTO) 9.9 K/uL (1.8-7.7); NEUTROPHILS % (AUTO) 92.4 % (40.0-70.0); PLATELET COUNT (AUTO) 231 K/uL (130-430); RED BLOOD CELL COUNT(AUTO) 4.24 MIL/uL (4.2-6.2); RED CELL DISTRIBUTION WIDTH 13.9 % (9.0-15.0); WHITE BLOOD COUNT (AUTO) 10.7 K/uL (4.8-10.8)
[2018-11-26 07:01] LABS: CALCIUM 8.7 mg/dL (8.4-11.0); CREATININE 1.65 mg/dL (0.55-1.30); POTASSIUM 4.3 mmol/L (3.5-5.1)
--- NOTE | 2018-11-26 07:38 | NUR ---
OPENING NOTE Patient resting in the bed. No acute distress. Respiration even and unlabored. AAO x 4. Denied of pain. Skin warm and dry to touch. SL intact to right wrist, no redness, no swelling, patent. Discussed the safety issue, use call light when needs help, and plan of care, verbally understanding. Safety measure maintained. Call light within reached. Bed locked in low position, side rails up, bed alarm on. Will continue to monitor.
[2018-11-26 07:55] VITALS: BP_SYST 144
[2018-11-26] MEDS: CLOPIDOGREL BISULFATE 75 MG TABLET PO SCH (08:29)
[2018-11-26] MEDS: COLCHICINE 0.6 MG TABLET PO SCH (08:29)
[2018-11-26] MEDS: CELECOXIB 200 MG CAPSULE PO SCH (08:29)
[2018-11-26] MEDS: CARVEDILOL 12.5 MG TABLET (COREG) PO SCH (08:29)
[2018-11-26] MEDS: methylPREDNISolone SOD SUCC/PF 62.5 MG/ML VIAL IVP SCH (08:29)
[2018-11-26] MEDS: ceFAZolin SODIUM 1 GM in D5W 50 ML IV SCH (08:30)
--- NOTE | 2018-11-26 08:50 | NUR ---
BATHROOM Ambulated to bathroom with assist and using walker. Void yellow urine, no hematuria/dysuria noted. Assisted back to bathroom. Call light within reached. Bed locked in low position, side rails up, bed alarm on. Continue to monitor.
--- NOTE | 2018-11-26 10:25 | NUR ---
VISITED AND STAY WITH PATIENT AT BEDSIDE.
--- NOTE | 2018-11-26 10:37 | NUR ---
Discharge Planning: DCP faxed pt referral to Meche nnii [facility] (f [phone] p [phone]), [facility] (f [phone] p [phone]) DCP to follow up. Addendum: 11/26/18 at 1450 by Soco Santiago DP [facility] p [phone]) accepted pt to [facility], DCP made nurse and CM aware. DC order is needed. Then DCP can set up transportation. Addendum: 11/26/18 at 1535 by Soco Santiago DP [facility] (f [phone] p [phone]) accepted pt to [facility], ([phone]) 4:30pm P/U. Patient packet taken to nurse station. Addendum: 11/26/18 at 1537 by Soco Santiago DP Transportation Auth# [id number] RONA gave to
--- NOTE | 2018-11-26 12:15 | NUR ---
LUNCH Patient eating lunch with at bedside.
[2018-11-26 12:25] VITALS: BP_SYST 134
--- NOTE | 2018-11-26 13:23 | NUR ---
DC PLANNING This am called & spoke w Meche @ [facility], ph [phone], informed order for SNF, pt/family preference [facility]. Later in afternoon received call back from Meche that ok for SNF, [facility] is ok if they will accept pt, that will putting in auth. Contracted Ambulance is [facility], if they cannot transfer pt then can use [facility], ambulance auth#[id number]. Spoke w pt & @ bedside, both agreeable w SNF, prefer [facility]. Updated that received auth for SNF waiting to here back from [facility] if accepting pt. Informed plan for dc today. Da Wan dc habitat conservation planner. Addendum: 11/26/18 at 1549 by Meche Peres RN Per Soco pt accepted @ [facility] after 1530. Charge nurse received order for dc to SNF. Pt's nurse Susan cummings, would like around 4 - 430pm for brain picker. clemente Wan habitat conservation planner aware. Informed pt & Barbara @ bedside & both agreeable, states have spoken w someone from [facility] already. wants to go on ambulance to SNF, informed Soco.
--- NOTE | 2018-11-26 14:05 | NUR ---
ROUND Patient resting in the bed and talking with at bedside. Safety measure maintained. Bed locked in low position, side rails up, bed alarm on. Call light within reached. Continue to monitor.
--- NOTE | 2018-11-26 14:32 | NUR ---
Dietitian Recommendations *Recommend continuing Renal Standard diet per MD orders. Please see Nutritional Assessment for details. DEIRDRE, RD
[2018-11-26 16:10] VITALS: BP_SYST 130
--- NOTE | 2018-11-26 16:28 | NUR ---
REPORT GIVEN TO BELA KWONG IN [facility].
[2018-11-26 16:45] VITALS: BP_SYST 132
--- NOTE | 2018-11-26 16:45 | NUR ---
PT TRANSFERRED Report given to BELA Mccracken at 1628. Transfer packet with Transfer Orders and Medication Reconciliation form given to EMT with report. Exitcare provided. [facility] ID band removed, replaced with ID band with pt's name and . Per BELA Mccracken requested keep the IV access. All belongings sent with patient. left with patient. Patient left floor via gurney escorted by EMT in no distress.
== END 2018-11-26 16:45 | DRG 383 ==
LOC: SED 15:15 → SMU 18:55
PROVIDERS: ADMIT Family Medicine; ATTEND Family Medicine
DX: L03.115 Cellulitis of right lower limb (principal); N17.0 Acute kidney failure with tubular necrosis; R65.10 Systemic inflammatory response syndrome (SIRS) of non-infectious origin without acute organ dysfunction; M19.072 Primary osteoarthritis, left ankle and foot; E78.5 Hyperlipidemia, unspecified; I12.9 Hypertensive chronic kidney disease with stage 1 through stage 4 chronic kidney disease, or unspecified chronic kidney disease; L03.116 Cellulitis of left lower limb; M10.9 Gout, unspecified; N18.9 Chronic kidney disease, unspecified; E86.0 Dehydration; L08.9 Local infection of the skin and subcutaneous tissue, unspecified; Z91.041 Radiographic dye allergy status; Z79.899 Other long term (current) drug therapy; I25.2 Old myocardial infarction; Z95.5 Presence of coronary angioplasty implant and graft
CPT/HCPCS: 36415; 71045; 76770; 80048; 80053; 81000-TC; 83605; 84484; 84550-TC; 85025; 86140; 87040-TC; 93971; 96365; 96366; 96367; 97110-GP; 97116-GP; 97530-GP; 99285; J0690; J2543; J2930; J3370; J7050; J7060

== ENCOUNTER 2019-04-05 18:52 | Inpatient (IN) | payer MEDICAID ==
[~2019-04-05] VITALS: Ht 180.3 cm; Wt 74.9 kg
[2019-04-05 18:52] VITALS: BP_SYST 190
[~2019-04-05 18:52] MED LIST changes: -AMLO2.5T2 PO; -DOXY100C PO; -LOSA50TA3 PO; -METO25TA3 PO
--- NOTE | 2019-04-05 19:10 | NUR ---
Pt c/o SOB with Chest pressure ongoing x 3 days. Pt states upon awakening, he felt like he couldn't breath. Pt states that his chest hurts with deep breathing. He also states that he feels a burning sensation from his feet moving up his legs. Pt was seen at [place] urgent care and was referred to ER.
[2019-04-05] MEDS ORDERED: NACL 0.9% 1,000 ML IV ONE (19:24)
[2019-04-05] MEDS ORDERED: ASPIRIN 81 MG TAB.CHEW PO ONE (19:30)
--- NOTE | 2019-04-05 19:30 | NUR ---
# 20 gauge angiocath placed to RAC. Use of asceptic technique. Opsite placed over site. Blood return noted. Blood for lab drawn from site. Flushed with 10 cc of normal saline. No evidence of infiltration noted. Patient tolerated well.
--- NOTE | 2019-04-05 19:41 | NUR ---
X-ray at bedside.
[2019-04-05 19:55] LABS: BILIRUBIN,URINE NEGATIVE (NEGATIVE); BLOOD, URINE 2+ (NEGATIVE); CLARITY/URINE CLEAR (CLEAR); COLOR,URINE YELLOW (YELLOW); GLUCOSE,URINE NEGATIVE (NEGATIVE); KETONES,URINE NEGATIVE (NEGATIVE); LEUKOCYTE ESTERASE ,URINE NEGATIVE (NEGATIVE); NITRITE, URINE NEGATIVE (NEGATIVE); PROTEIN URINE 1+ (NEGATIVE); UROBILINOGEN,URINE 0.2 (0.2-1.0)
--- NOTE | 2019-04-05 19:55 | NUR ---
Dr. Gonzalez at bedside.
[2019-04-05 19:59] LABS: ANION GAP 9 (5-15); CALCIUM 8.8 mg/dL (8.4-11.0); CHLORIDE 109 mmol/L (98-107); CREATININE 1.63 mg/dL (0.55-1.30); GLUCOSE 89 mg/dL (70-99); SODIUM SERUM 144 mmol/L (136-145); UREA NITROGEN, BLOOD 31 mg/dL (8-21)
[2019-04-05 20:00] LABS: BASOPHILS % (AUTO) 0.8 % (0.0-2.0); EOSINOPHILS # (AUTO) 0.1 K/uL (0.0-0.4); EOSINOPHILS % (AUTO) 2.1 % (0.0-4.0); HEMOGLOBIN 13.2 g/dL (14.0-18.0); LYMPHOCYTES # (AUTO) 1.2 K/uL (1.0-5.5); LYMPHOCYTES % (AUTO) 25.8 % (20.5-51.5); MEAN CORPUSCULAR HEMOGLOBIN 31 pg (27-31); MEAN CORPUSCULAR HGB CONC 33 % (32-36); MEAN CORPUSCULAR VOLUME 95 fL (79.0-98.0); MONOCYTES # (AUTO) 0.3 K/uL (0.0-1.0); MONOCYTES % (AUTO) 6.9 % (1.7-9.3); NEUTROPHILS # (AUTO) 2.9 K/uL (1.8-7.7); NEUTROPHILS % (AUTO) 64.4 % (40.0-70.0); PLATELET COUNT (AUTO) 154 K/uL (130-430); RED CELL DISTRIBUTION WIDTH 14.8 % (9.0-15.0); WHITE BLOOD COUNT (AUTO) 4.6 K/uL (4.8-10.8)
--- NOTE | 2019-04-05 20:00 | NUR ---
Pt verbalizes improvement in C/P and tightness. Respirations even and non-labored, NAD. at bedside and no needs verbalized at this time. Dr. Gonzalez aware of pt elevated B/P.
[2019-04-05 20:04] LABS: GFR AFRICAN AMERICAN 55 mL/min (>90)
[2019-04-05 20:08] LABS: ALANINE AMINOTRANSFERASE 18 U/L (12-78); ALBUMIN 3.5 g/dL (3.4-4.8); ASPARTATE AMINOTRANSFERASE 16 U/L (10-37); TOTAL BILIRUBIN 0.3 mg/dL (0.0-1.0)
[2019-04-05 20:12] LABS: BACTERIA,URINE FEW /HPF (None Seen); MUCUS,URINE None Seen /LPF (None Seen); WBC,URINE NONE SEEN /HPF (0-3)
[2019-04-05 20:23] LABS: PROTHROMBIN TIME 10.3 SECS (9.5-12.5)
--- NOTE | 2019-04-05 21:30 | NUR ---
Alert, talking with . Denies c/o pain or discomfort, no needs verbalized.
--- NOTE | 2019-04-05 22:20 | NUR ---
RT at bedside to obtain ABG.
--- NOTE | 2019-04-05 22:20 | NUR ---
X-ray at bedside to explain V/Q scan.
--- NOTE | 2019-04-05 23:00 | NUR ---
Note mahogany in ED - 04/05/19 at 2359 by SDEDAJ Pt unable to recall home medications. present and states that she will obtain the med list and bring it.
--- NOTE | 2019-04-05 23:00 | NUR ---
Per and pt, pt continues to take Vitamin D, Atorvastatin, and Plavix as reviewed on on home med list. states that she has a list of remaining medications, but doesn't have it with her. She states that she will bring it tomorrow.
[2019-04-05] MEDS ORDERED: LevALBUTEROL HCL 1.25 MG/0.5 ML *CONC.* VIAL.NEB (XOPENEX CONC.) INH PRN (23:30)
[2019-04-05] MEDS ORDERED: *HEPARIN PER PHARMACY XX ONE (23:30)
[2019-04-05] MEDS ORDERED: HEPARIN 25,000 UNITS/D5W 250ML 250 ML IV SCH (23:30)
[2019-04-05] MEDS ORDERED: cloNIDine HCL 0.1 MG TABLET PO PRN (23:30)
[2019-04-05] MEDS ORDERED: ACETAMINOPHEN 325 MG TABLET PO PRN (23:30)
[2019-04-05] MEDS ORDERED: amLODIPine BESYLATE 10 MG TABLET PO ONE (23:45)
--- NOTE | 2019-04-05 23:52 | NUR ---
Patient will be admitted to care of Dr. Story. Admitted to Tele unit. Will go to room 114B. Belongings list completed. Summary report printed. Report will be given at bedside.
--- NOTE | 2019-04-06 00:10 | NUR ---
ADMISSION: The patient, BERTO URIOSTEGUI, 63 y/o, M admitted by FRANCE WILKES MD, was given written information regarding hospital policies, unit procedures and contact persons.
--- NOTE | 2019-04-06 00:14 | NUR ---
Pulmo Consultation Paged Reason for consultation: Acute SOB Was consult called: Yes Person who was notified: Lee Ann Consulting Physician: Dr Oliver; Dr Carter is on-call. Medical Collections Specialist Specialty: Wooden Tank Erector Medical Collections Specialist Ordered By: Dr Story
--- NOTE | 2019-04-06 00:15 | NUR ---
ROUNDS PATIENT IN BED, AWAKE, ALERT, ORIENTED X4, VITALS STABLE, DENIES ANY PAIN AND DISCOMFORT AT THIS TIME. ADMISSION ASSESSMENT DONE AND DOCUMENTED. SEE FLOWSHEET. ORIENTED TO HIS ROOM, PHONE, TV AND CALL LIGHT. PLAN OF CARE DISCUSSED AND PATIENT VERBALIZED UNDERSTANDING. NEEDS ATTENDED TO. SAFETY AND FALL PRECAUTION MEASURES IN PLACED. BED IN LOW AND LOCKED POSITION. CALL LIGHT PLACED WITHIN REACH.
[2019-04-06 00:22] VITALS: BP_SYST 176
[2019-04-06 00:29] VITALS: BP_SYST 160
[2019-04-06] MEDS ORDERED: HEPARIN SODIUM,PORCINE 3000 UNITS/0.6 ML BOLUS IVP PRN (01:00)
[2019-04-06] MEDS ORDERED: [UNRECOGNIZED DRUG - OTHER] IVP ONE (01:00)
[2019-04-06] MEDS ORDERED: HEPARIN SODIUM,PORCINE 2000 UNITS/0.4 ML BOLUS IVP PRN (01:00)
[2019-04-06] MEDS ORDERED: HEPARIN SODIUM PORCINE IVP ONE (01:00)
[2019-04-06] MEDS: HEPARIN 25,000 UNITS in 250 ML PREMIX IV PRN ×2 (01:43→11:19)
--- NOTE | 2019-04-06 04:13 | NUR ---
ROUNDS PATIENT ASLEEP, RESPIRATIONS EVEN AND UNLABORED, NO SIGNS OF ANY PAIN AND DISCOMFORT NOTED. WILL CONTINUE TO MONITOR.
[2019-04-06 08:00] VITALS: BP_SYST 142
--- NOTE | 2019-04-06 08:00 | NUR ---
Initial Notes: Pt in bed, eating breakfast. On heparin drip at 1300 units/hr. On o2 2l tolerating well. Denies any shortness of breath or chest pain. afety precaution observed. call light within reach. Enc. to call for help as needed. Update plan of care. Will monitor.
--- NOTE | 2019-04-06 08:49 | NUR ---
Notes-PTT is 120.3sec. Heparin is stopped at this time per protocol. Will resume heparin in 1 hour as per protocol. Addendum: 04/06/19 at 0922 by Rivka George RN will repeat PTT in an hour.
--- NOTE | 2019-04-06 08:57 | NUR ---
notes- spoke to and made aware to bring patient list of home meds.
[2019-04-06] MEDS ORDERED: amLODIPine BESYLATE 10 MG TABLET PO SCH (09:00)
--- NOTE | 2019-04-06 11:20 | NUR ---
Notes- PTT 63.5sec. Per protocol, decreased heparin drip to 1100units. Will recheck lab, after 6 hours.
[2019-04-06 11:38] VITALS: BP_SYST 137
[2019-04-06] MEDS ORDERED: AMLO2.5T2 PO (12:14)
[2019-04-06] MEDS ORDERED: CARV12.548 PO (12:14)
[2019-04-06] MEDS ORDERED: TAMS-11 PO (12:14)
[2019-04-06] MEDS ORDERED: COLC0.6C PO (12:14)
[2019-04-06] MEDS ORDERED: FINA5TAB3 PO (12:14)
[2019-04-06] MEDS ORDERED: GABA-529 PO (12:14)
[2019-04-06] MEDS ORDERED: HYDR-4272 PO (12:14)
--- NOTE | 2019-04-06 12:38 | NUR ---
Notes-VQSCAN being done at bedside. at bedside.
--- NOTE | 2019-04-06 14:21 | NUR ---
Notes-Pt awake, resting semi-fowlers position. at bedside. Denies any SOB, pt is on 2L nasal cannula, saturating at 97% and tolerating well.
[2019-04-06 15:11] VITALS: BP_SYST 139
[2019-04-06] MEDS ORDERED: IBUPROFEN 800 MG TABLET PO PRN (16:45)
--- NOTE | 2019-04-06 16:45 | NUR ---
Notes-Pt complaining of headache. Pt refused PRN tylenol and would like to take motrin. Spoke with Dr. Story, new orders given for motrin 800mg PRN.
--- NOTE | 2019-04-06 16:55 | NUR ---
Notes-Pt complaining of headache. Medicated with PRN motrin. will continue to monitor.
--- NOTE | 2019-04-06 17:48 | NUR ---
Rounds-Dr. Story at bedside. at bedside.
--- NOTE | 2019-04-06 18:00 | NUR ---
Notes-Spoke with Dr. Carter. Informed of VQSCAN results, and declared pt cleared to go home.
[2019-04-06] MEDS ORDERED: COLCHICINE 0.6 MG PO SCH (18:15)
[2019-04-06] MEDS ORDERED: NON-FORMULARY MEDICATION (Hydrocodone/Acetaminophen (Norco 5-325 Tablet) 1 EACH) PO SCH (18:15)
[2019-04-06 18:28] VITALS: BP_SYST 139
[2019-04-06] MEDS ORDERED: CARVEDILOL 12.5 MG TABLET (COREG) PO SCH (21:00)
[2019-04-06] MEDS ORDERED: GABAPENTIN 100 MG CAPSULE PO SCH (21:00)
[2019-04-06] MEDS ORDERED: ATORVASTATIN 20 MG TABLET PO SCH (21:00)
[2019-04-07] MEDS ORDERED: CLOPIDOGREL BISULFATE 75 MG TABLET PO SCH (09:00)
[2019-04-07] MEDS ORDERED: NON-FORMULARY MEDICATION (Cholecalciferol (Vitamin D3) (Vitamin D3) 1,000 UNIT) PO SCH (09:00)
[2019-04-07] MEDS ORDERED: FINASTERIDE 5 MG TABLET (PROSCAR) PO SCH (09:00)
[2019-04-07] MEDS ORDERED: amLODIPine BESYLATE 5 MG TABLET PO SCH (09:00)
[2019-04-07] MEDS ORDERED: NON-FORMULARY MEDICATION (Tamsulosin Hcl (Flomax) 0.4 MG) PO SCH (09:00)
== END 2019-04-06 18:45 | disposition home or self-care (01) | DRG 134 ==
LOC: SED 18:52 → STU 23:28
PROVIDERS: ADMIT Family Medicine; ATTEND Family Medicine
DX: I26.99 Other pulmonary embolism without acute cor pulmonale (principal); G62.9 Polyneuropathy, unspecified; Q61.3 Polycystic kidney, unspecified; E78.5 Hyperlipidemia, unspecified; I12.9 Hypertensive chronic kidney disease with stage 1 through stage 4 chronic kidney disease, or unspecified chronic kidney disease; I25.10 Atherosclerotic heart disease of native coronary artery without angina pectoris; M19.90 Unspecified osteoarthritis, unspecified site; N18.9 Chronic kidney disease, unspecified; N40.0 Benign prostatic hyperplasia without lower urinary tract symptoms; Z95.5 Presence of coronary angioplasty implant and graft; Z88.5 Allergy status to narcotic agent; I25.2 Old myocardial infarction; Z91.041 Radiographic dye allergy status
CPT/HCPCS: 36415; 36600; 71045; 78579; 78580-TC; 80053; 81000-TC; 82803-TC; 83880; 84484; 85025; 85379; 85610-TC; 85730-TC; 87081; 93005; 93970; 96360; 99285; A9539; A9540; G0378; J1644